=== PATIENT | female | born 1985 | race American Indian/Alaskan Native ===

== ENCOUNTER 2017-05-26 18:11 | Emergency (ER) | payer MEDICARE ==
[2017-05-26 18:28] VITALS: BP 134/87
[2017-05-26] MEDS ORDERED: MOTRIN PO ONE (19:44)
[2017-05-26] MEDS ORDERED: ZOFRAN ODT PO ONE (19:44)
[2017-05-26] MEDS ORDERED: NORCO 7.5/325 PO ONE (19:44)
--- NOTE | 2017-05-26 19:45 | Emergency Department Report ---
Blank Doc - Documentation Documentation: Patient is a 32-year-old Female who is presenting with cough cold congestion and body aches and mild sore throat and fever chills starting 3 days ago. Patient because of her O2 sat are 94% we'll get a chest x-ray however patient's symptoms are very consistent with flu
--- NOTE | 2017-05-26 20:10 | Emergency Department Report ---
- General Chief Complaint: Upper Respiratory Infection Stated Complaint: GENERAL SICK Time Seen by Provider: 05/26/17 19:28 Source: patient, EMS Mode of arrival: Wheelchair Limitations: No Limitations - History of Present Illness Initial Comments: Patient is a 32-year-old Female who is presenting with cough cold congestion and body aches and mild sore throat and fever chills starting 3 days ago. Patient because of her O2 sat are 94% we'll get a chest x-ray however patient's symptoms are very consistent with flu MD Complaint: fever, cough, sore throat, rhinorrhea, nasal congestion, sinus pain Onset/Timin -: week(s) Severity: moderate Severity scale (0 -10): 4 Quality: aching Consistency: intermittent Improves With: other (rest) Worsens With: activity Context: sick contacts Associated Symptoms: fever, chills, myalgias, headache, rhinorrhea, nasal congestion, sore throat, cough, abdominal pain, nausea, vomiting, ear pain. denies: stiff neck, chest pain, shortness of breath, diarrhea, dysuria, rash, confusion, right sweats, weight loss, epistaxis, hoarseness Treatments Prior to Arrival: none - Related Data Home Medications Medication Instructions Recorded Confirmed Last Taken Atazanavir (Nf) [Reyataz] 200 mg PO QDAY 06/26/13 04/16/14 08/04/13 22:00 Emtricitabin/Tenofovir [TRUVADA 1 tab PO QDAY 06/26/13 04/16/14 08/04/13 22:00 200-300 mg] Ritonavir [Norvir] 100 mg PO QDAY 06/26/13 04/16/14 04/16/14 Previous Rx's Medication Instructions Recorded Last Taken Type Vit/Iron Fum/Folic AC 1 each PO QDAY #90 tablet 08/05/13 04/16/14 Rx [ Vitamin Tablet] Albuterol Sulfate [Ventolin HFA] 2 puff IH Q4H PRN #1 hfa.aer.ad 03/22/14 Unknown Rx Inhaler, Assist Devices [Space 1 each MC PRN PRN #1 spacer 03/22/14 Unknown Rx Chamber Plus] Nebulizer Accessories [Aeroneb Go] 1 each MC PRN #1 each 03/22/14 Unknown Rx Nebulizer [Compact Compressor 1 each MC PRN #1 kit 03/22/14 Unknown Rx Nebulizer] ALBUTEROL Inhaler [ProAir HFA 2 puff IH QID PRN #1 inhalation 05/26/17 Unknown Rx Inhaler] Dexamethasone [Decadron] 4 mg PO Q12H #4 tablet 05/26/17 Unknown Rx Guaifenesin/Pseudoephedrne HCl 1 each PO BID PRN #24 tab.er.12h 05/26/17 Unknown Rx [Mucinex D ER 1,200-120 mg Tab] Ibuprofen 800 mg PO TID PRN #30 tablet 05/26/17 Unknown Rx Allergies Allergy/AdvReac Type Severity Reaction Status Date / Time ciprofloxacin [From Cipro] AdvReac Rash Verified 08/17/13 08:04 ciprofloxacin HCl AdvReac Rash Verified 08/17/13 08:04 [From Cipro] clindamycin AdvReac Shortness Verified 08/17/13 08:04 of Breath ED Review of Systems ROS: Stated complaint: GENERAL SICK Other details as noted in HPI Constitutional: chills, fever Eyes: denies: eye pain, eye discharge, vision change ENT: ear pain, throat pain, congestion Respiratory: cough, wheezing Cardiovascular: denies: chest pain, palpitations Endocrine: no symptoms reported Gastrointestinal: nausea, vomiting. denies: abdominal pain, diarrhea Genitourinary: denies: urgency, dysuria, discharge Musculoskeletal: denies: back pain, joint swelling, arthralgia Skin: denies: rash, lesions Neurological: denies: headache, weakness, paresthesias Psychiatric: denies: anxiety, depression Hematological/Lymphatic: denies: easy bleeding, easy bruising ED Past Medical Hx - Past Medical History Hx Hypertension: No Hx Heart Attack/AMI: No Hx Congestive Heart Failure: No Hx Diabetes: No Hx Deep Vein Thrombosis: No Hx Liver Disease: No Hx Renal Disease: Yes (hx of kidney infection several years ago but resolved) Hx Sickle Cell Disease: No Hx Seizures: No Hx Asthma: Yes Hx COPD: No Hx HIV: Yes Additional medical history: ectopic - Surgical History Additional Surgical History: ectopic preg. laparotomy; left tube removed. miscarriage - Social History Smoking Status: Former Smoker Substance Use Type: None - Medications Home Medications: Home Medications Medication Instructions Recorded Confirmed Last Taken Type Atazanavir (Nf) [Reyataz] 200 mg PO QDAY 06/26/13 04/16/14 08/04/13 22:00 History Emtricitabin/Tenofovir [TRUVADA 1 tab PO QDAY 06/26/13 04/16/14 08/04/13 22:00 History 200-300 mg] Ritonavir [Norvir] 100 mg PO QDAY 06/26/13 04/16/14 04/16/14 History Vit/Iron Fum/Folic AC 1 each PO QDAY #90 tablet 08/05/13 04/16/1404/16 Rx [ Vitamin Tablet] Albuterol Sulfate [Ventolin HFA] 2 puff IH Q4H PRN #1 hfa.aer.ad 03/22/14 Unknown Rx Inhaler, Assist Devices [Space 1 each PRN PRN #1 spacer 03/22/14 04/16/14 Unknown Rx Chamber Plus] Nebulizer Accessories [Aeroneb Go] 1 each PRN #1 each 03/22/14 04/16/14 Unknown Rx Nebulizer [Compact Compressor 1 each PRN #1 kit 03/22/14 04/16/14 Unknown Rx Nebulizer] ALBUTEROL Inhaler [ProAir HFA 2 puff IH QID PRN #1 inhalation 05/26/17 Unknown Rx Inhaler] Dexamethasone [Decadron] 4 mg PO Q12H #4 tablet 05/26/17 Unknown Rx Guaifenesin/Pseudoephedrne HCl 1 each PO BID PRN #24 tab.er.12h 05/26/17 Unknown Rx [Mucinex D ER 1,200-120 mg Tab] Ibuprofen 800 mg PO TID PRN #30 tablet 05/26/17 Unknown Rx ED Physical Exam - General Limitations: No Limitations General appearance: alert, in no apparent distress - Head Head exam: Present: atraumatic, normocephalic - Eye Eye exam: Present: normal appearance, PERRL, EOMI Pupils: Present: normal accommodation - ENT ENT exam: Present: mucous membranes moist, TM's normal bilaterally - Expanded ENT Exam Expanded Mouth exam: Present: normal external inspection Throat exam: Positive: tonsillar erythema, tonsillomegaly. Negative: tonsillar exudate, R peritonsillar mass, L peritonsillar mass - Neck Neck exam: Present: normal inspection, full ROM. Absent: tenderness, lymphadenopathy, thyromegaly - Respiratory Respiratory exam: Present: normal lung sounds bilaterally. Absent: respiratory distress, wheezes, rhonchi, stridor, chest wall tenderness - Cardiovascular Cardiovascular Exam: Present: regular rate, normal rhythm, normal heart sounds. Absent: systolic murmur, diastolic murmur, rubs, gallop - GI/Abdominal GI/Abdominal exam: Present: soft, normal bowel sounds. Absent: distended, tenderness, guarding, rebound, rigid, mass, bruit, pulsatile mass, hernia - Rectal Rectal exam: Present: deferred - Extremities Exam Extremities exam: Present: normal inspection, full ROM. Absent: tenderness - Back Exam Back exam: Present: normal inspection, full ROM. Absent: tenderness, CVA tenderness (R), CVA tenderness (L), muscle spasm, paraspinal tenderness, vertebral tenderness, rash noted - Neurological Exam Neurological exam: Present: alert, oriented X3, CN II-XII intact, normal gait, reflexes normal - Psychiatric Psychiatric exam: Present: normal affect, normal mood - Skin Skin exam: Present: warm, dry, intact, normal color. Absent: rash ED Course Vital Signs 05/26/17 05/26/17 05/26/17 18:21 19:47 20:46 Temperature 98.6 F Pulse Rate 81 Respiratory 20 18 18 Rate Blood Pressure 134/87 O2 Sat by Pulse 94 98 Oximetry ED Medical Decision Making - EKG Data Rate: normal - Radiology Data Radiology results: report reviewed, image reviewed no infiltrate no opacities - Medical Decision Making Patient is a 32-year-old Female who is presenting with cough cold congestion and body aches and mild sore throat and fever chills starting 3 days ago. Patient because of her O2 sat are 94% we'll get a chest x-ray however patient's symptoms are very consistent with flu exam: pt appears well nontoxi pt is toleraing po intake at this time without n/v/d ent: tm normal nose: boggy clear post nasal drip bilat turbinate erythema no polyps no obstruction , pharynx: moderate erythema no exudate no lesions uvula remains midline no stridor lungs are clear bilat no wheezing , cxr: normal, pt consistent with flu like symptoms , no pnuemonia but pt has hx of bronchitis requiring albuterol prn and exacerbated by uri will tx with bronchitis , URI pt will follow up with pcp in 2 -3 days Critical care attestation.: If time is entered above; I have spent that time in minutes in the direct care of this critically ill patient, excluding procedure time. ED Disposition Clinical Impression: Upper respiratory disease, Flu-like symptoms Disposition: TO HOME OR SELFCARE Is pt being admited?: No Does the pt Need Aspirin: No Condition: Good Instructions: Acute Bronchitis (ED), Upper Respiratory Infection (ED) Prescriptions: ALBUTEROL Inhaler [ProAir HFA Inhaler] 2 puff IH QID PRN #1 inhalation PRN Reason: Shortness Of Breath Dexamethasone [Decadron] 4 mg PO Q12H #4 tablet Guaifenesin/Pseudoephedrne HCl [Mucinex D ER 1,200-120 mg Tab] 1 each PO BID PRN #24 tab.er.12h PRN Reason: cough congestion Ibuprofen 800 mg PO TID PRN #30 tablet PRN Reason: fever pain Referrals: PRIMARY CARE, [Primary Care Provider] - 3-5 Days Forms: Work/School Release Form(ED) Time of Disposition: 21:05
--- NOTE | 2017-05-26 20:43 | XRay Report ---
FINAL REPORT EXAM: XR CHEST ROUTINE 2V HISTORY: cough TECHNIQUE: Two view chest PA and lateral PRIORS: None. FINDINGS: Cardiac and mediastinal contours are unremarkable. No focal pulmonary infiltrate is identified. No pleural fluid collection seen. Pulmonary vasculature is unremarkable. IMPRESSION: Negative two-view chest
== END 2017-05-26 21:13 | disposition home or self-care (01) ==
LOC: ED 18:11
DX: J06.9 Acute upper respiratory infection, unspecified (principal); Z88.1 Allergy status to other antibiotic agents; J45.909 Unspecified asthma, uncomplicated; Z87.891 Personal history of nicotine dependence
CPT/HCPCS: 71046; Q0162